=== PATIENT | male | born 1975 | race Caucasian/White ===

== ENCOUNTER 2022-04-24 13:09 | Inpatient (IN) | payer MEDICAID ==
[~2022-04-24] VITALS: Ht 177.8 cm; Wt 110.2 kg
[2022-04-24 15:12] LABS: BASOPHILS % 0.8 % (0.0-2.0); EOSINOPHILS % 2.3 % (0.0-5.0); HEMOGLOBIN. 9.6 g/dL (14.0-18.0); LYMPHOCYTES % 11.5 % (20.0-50.0); MEAN CORPUSCULAR HEMOGLOBIN 31.3 pg (28.0-32.0); MEAN PLATELET VOLUME 7.6 fl (7.4-10.4); MONOCYTES % 11.1 % (2.0-8.0); NEUTROPHILS % 74.3 % (40.0-76.0); PLATELET 221 x1000/uL (130-400); RED BLOOD CELL COUNT 3.06 mill/uL (4.7-6.1)
[2022-04-24 15:26] LABS: INR 1.1; PARTIAL THROMBOPLASTIN TIME 30.1 sec (23.4-31.0); PROTHROMBIN TIME 11.5 sec (9.6-11.0)
[2022-04-24 15:30] LABS: CHLORIDE 97 mEq/L (98-107)
[2022-04-24] MEDS ORDERED: LORAZEPAM 0.5MG TABLET PO PRN (18:00)
[2022-04-24] MEDS ORDERED: ACETAMINOPHEN 325MG TABLET PO PRN ×2 (18:00)
[2022-04-24] MEDS ORDERED: IPRATROPIUM/ALBUTEROL 0.5-3(2.5)MG/3ML NEB HHN PRN (18:00)
[2022-04-24] MEDS ORDERED: DOCUSATE SODIUM 100MG CAPSULE PO PRN (18:00)
[2022-04-24] MEDS ORDERED: ONDANSETRON HCL 4MG/2ML INJ IV PRN (18:00)
[2022-04-24] MEDS ORDERED: ALBUTEROL (0.083%) 2.5MG/3ML NEB HHN PRN (18:15)
[2022-04-24] MEDS ORDERED: IPRATROPIUM BROMIDE (0.02%) 0.5MG/2.5ML NEB HHN PRN (18:15)
[2022-04-24] MEDS: HYDROCODONE/ACETAMINOPHEN 5/325MG TABLET PO PRN (20:05)
[2022-04-24 23:45] VITALS: BP 130/73
[2022-04-25] VITALS (7 sets, daily range): BP systolic 120–152; BP diastolic 62–78
[2022-04-25] MEDS: HYDROCODONE/ACETAMINOPHEN 5/325MG TABLET PO PRN ×3 (02:28→21:49)
[2022-04-25 07:08] LABS: BASOPHILS % 0.8 % (0.0-2.0); EOSINOPHILS % 4.5 % (0.0-5.0); HEMATOCRIT. 26.1 % (42.0-52.0); HEMOGLOBIN. 8.6 g/dL (14.0-18.0); LYMPHOCYTES % 12.1 % (20.0-50.0); MEAN CORPUSCULAR HEMOGLOBIN 31.7 pg (28.0-32.0); MEAN CORPUSCULAR VOLUME 96.2 fL (80.0-94.0); MEAN PLATELET VOLUME 7.9 fl (7.4-10.4); MONOCYTES % 14.3 % (2.0-8.0); NEUTROPHILS % 68.3 % (40.0-76.0); PLATELET 194 x1000/uL (130-400); RED BLOOD CELL COUNT 2.71 mill/uL (4.7-6.1)
[2022-04-25] MEDS ORDERED: NALOXONE HCL 0.4MG/ML VIAL IV PRN (11:15)
[2022-04-25 15:18] LABS: HEPATITIS B SURFACE ANTIGEN NEGATIVE
[2022-04-25] MEDS ORDERED: CEFTRIAXONE 1 G PREMIX 50 ML IV SCH (17:30)
[2022-04-25] MEDS ORDERED: CEFEPIME 1,000 MG in DEXTROSE 5% WATER 50 ML IV SCH (18:30)
[2022-04-25] MEDS ORDERED: VANCOMYCIN 2,000 MG in DEXT 5% WATER 500 ML IV NR ×2 (18:30→21:00)
[2022-04-25] MEDS: CEFEPIME 1,000 MG in DEXTROSE 5% WATER 50 ML IV SCH (20:32)
[2022-04-26] VITALS (11 sets, daily range): BP systolic 115–186; BP diastolic 64–87
[2022-04-26] MEDS: MORPHINE SULFATE 2 MG/ML CPJ (NOT FOR IM USE) IV PRN ×5 (02:32→22:01)
[2022-04-26] MEDS: HYDROCODONE/ACETAMINOPHEN 5/325MG TABLET PO PRN (10:32)
[2022-04-26] MEDS ORDERED: DEXTROSE 50% WATER 50ML SYRINGE IV PRN (13:00)
[2022-04-26] MEDS: BLOOD SUGAR DIAGNOSTIC STRIP TEST SCH ×2 (16:30→20:59)
[2022-04-26] MEDS: INSULIN LISPRO 100 UNITS/ML SUBCUT SCH ×2 (16:30→20:59)
[2022-04-26] MEDS: CEFEPIME 1,000 MG in DEXTROSE 5% WATER 50 ML IV SCH (20:48)
[2022-04-27] VITALS (8 sets, daily range): BP systolic 140–169; BP diastolic 71–90
[2022-04-27] MEDS: HYDROCODONE/ACETAMINOPHEN 5/325MG TABLET PO PRN (00:29)
[2022-04-27 05:59] LABS: BASOPHILS % 0.8 % (0.0-2.0); HEMATOCRIT. 26.1 % (42.0-52.0); HEMOGLOBIN. 8.6 g/dL (14.0-18.0); LYMPHOCYTES % 13.6 % (20.0-50.0); MEAN CORPUSCULAR HEMOGLOBIN 31.2 pg (28.0-32.0); MEAN CORPUSCULAR VOLUME 94.8 fL (80.0-94.0); MEAN PLATELET VOLUME 7.6 fl (7.4-10.4); MONOCYTES % 13.5 % (2.0-8.0); NEUTROPHILS % 68.1 % (40.0-76.0); PLATELET 200 x1000/uL (130-400); RED BLOOD CELL COUNT 2.75 mill/uL (4.7-6.1); RED CELL DISTRIBUTION WIDTH 15.9 % (11.6-14.6)
[2022-04-27] MEDS: MORPHINE SULFATE 2 MG/ML CPJ (NOT FOR IM USE) IV PRN ×2 (06:49→20:26)
[2022-04-27] MEDS: INSULIN LISPRO 100 UNITS/ML SUBCUT SCH ×4 (07:01→20:17)
[2022-04-27] MEDS: BLOOD SUGAR DIAGNOSTIC STRIP TEST SCH ×4 (07:01→20:17)
[2022-04-27] MEDS ORDERED: LINE600T14 MT (14:30)
[2022-04-27] MEDS ORDERED: LEVO-65 MT (14:30)
[2022-04-27] MEDS: CEFEPIME 1,000 MG in DEXTROSE 5% WATER 50 ML IV SCH (20:25)
[2022-04-28] VITALS (17 sets, daily range): BP systolic 97–178; BP diastolic 47–86
[2022-04-28] MEDS: CLONIDINE 0.1MG TABLET PO PRN (05:04)
[2022-04-28] MEDS: BLOOD SUGAR DIAGNOSTIC STRIP TEST SCH ×4 (06:50→21:08)
[2022-04-28] MEDS: INSULIN LISPRO 100 UNITS/ML SUBCUT SCH ×4 (07:20→21:00)
[2022-04-28 08:05] LABS: BASOPHILS % 0.8 % (0.0-2.0); EOSINOPHILS % 4.9 % (0.0-5.0); HEMATOCRIT. 26.4 % (42.0-52.0); HEMOGLOBIN. 8.8 g/dL (14.0-18.0); LYMPHOCYTES % 14.6 % (20.0-50.0); MEAN CORPUSCULAR HEMOGLOBIN 31.7 pg (28.0-32.0); MEAN CORPUSCULAR VOLUME 95.1 fL (80.0-94.0); MEAN PLATELET VOLUME 7.4 fl (7.4-10.4); NEUTROPHILS % 67.7 % (40.0-76.0); PLATELET 208 x1000/uL (130-400); RED BLOOD CELL COUNT 2.78 mill/uL (4.7-6.1); RED CELL DISTRIBUTION WIDTH 15.9 % (11.6-14.6)
[2022-04-28] MEDS ORDERED: VANCOMYCIN 1GM PMX (XELLIA) 200 ML IV SCH (18:00)
[2022-04-28] MEDS ORDERED: VANCOMYCIN 1G PREMIX 200 ML IV NR (18:30)
[2022-04-28] MEDS: CEFEPIME 1,000 MG in DEXTROSE 5% WATER 50 ML IV SCH (21:09)
[2022-04-28] MEDS: MORPHINE SULFATE 2 MG/ML CPJ (NOT FOR IM USE) IV PRN (21:52)
[2022-04-29 04:14] VITALS: BP 167/73
[2022-04-29] MEDS: CLONIDINE 0.1MG TABLET PO PRN ×2 (05:57→13:02)
[2022-04-29] MEDS: BLOOD SUGAR DIAGNOSTIC STRIP TEST SCH (06:02)
[2022-04-29 08:00] VITALS: BP 169/89
[2022-04-29 12:00] VITALS: BP 178/79
[2022-04-29 16:00] VITALS: BP 155/64
[2022-04-29] MEDS: MORPHINE SULFATE 2 MG/ML CPJ (NOT FOR IM USE) IV PRN (18:18)
[2022-04-29 20:00] VITALS: BP 147/69
[2022-04-29] MEDS: CEFEPIME 1,000 MG in DEXTROSE 5% WATER 50 ML IV SCH (21:05)
[2022-04-30] VITALS: BP 155/79
[2022-04-30] MEDS: CLONIDINE 0.1MG TABLET PO PRN (03:49)
[2022-04-30 04:00] VITALS: BP 171/80
[2022-04-30 07:03] LABS: BASOPHILS % 1.1 % (0.0-2.0); EOSINOPHILS % 7.4 % (0.0-5.0); HEMATOCRIT. 26.2 % (42.0-52.0); HEMOGLOBIN. 8.7 g/dL (14.0-18.0); LYMPHOCYTES % 14.2 % (20.0-50.0); MEAN CORPUSCULAR HEMOGLOBIN 31.4 pg (28.0-32.0); MEAN PLATELET VOLUME 7.4 fl (7.4-10.4); MONOCYTES % 12.8 % (2.0-8.0); NEUTROPHILS % 64.5 % (40.0-76.0); PLATELET 210 x1000/uL (130-400); RED BLOOD CELL COUNT 2.76 mill/uL (4.7-6.1); RED CELL DISTRIBUTION WIDTH 16.2 % (11.6-14.6)
[2022-04-30 08:00] VITALS: BP 181/74
[2022-04-30 12:00] VITALS: BP 151/71
[2022-04-30] MEDS ORDERED: NALOXONE HCL 0.4MG/ML VIAL IV PRN (12:15)
[2022-04-30] MEDS: AMLODIPINE 5MG TABLET PO SCH (12:47)
[2022-04-30] MEDS: MORPHINE SULFATE 2 MG/ML CPJ (NOT FOR IM USE) IV PRN ×2 (14:28→19:58)
[2022-04-30 16:00] VITALS: BP 147/72
[2022-04-30 19:39] VITALS: BP 156/77
[2022-04-30] MEDS: CEFEPIME 1,000 MG in DEXTROSE 5% WATER 50 ML IV SCH (20:07)
[2022-05-01] VITALS (11 sets, daily range): BP systolic 123–158; BP diastolic 69–79
[2022-05-01 06:28] LABS: EOSINOPHILS % 6.6 % (0.0-5.0); HEMATOCRIT. 28.5 % (42.0-52.0); HEMOGLOBIN. 9.5 g/dL (14.0-18.0); LYMPHOCYTES % 15.5 % (20.0-50.0); MEAN CORPUSCULAR HEMOGLOBIN 31.8 pg (28.0-32.0); MEAN CORPUSCULAR VOLUME 95.1 fL (80.0-94.0); MEAN PLATELET VOLUME 7.5 fl (7.4-10.4); MONOCYTES % 11.2 % (2.0-8.0); NEUTROPHILS % 65.7 % (40.0-76.0); PLATELET 233 x1000/uL (130-400); RED CELL DISTRIBUTION WIDTH 15.7 % (11.6-14.6)
[2022-05-01] MEDS: MORPHINE SULFATE 2 MG/ML CPJ (NOT FOR IM USE) IV PRN ×2 (07:08→18:41)
[2022-05-01] MEDS: METOCLOPRAMIDE HCL 10MG/2ML VIAL IV PRN (07:37)
[2022-05-01] MEDS: AMLODIPINE 5MG TABLET PO SCH (07:37)
[2022-05-01] MEDS: OMEPRAZOLE 20MG CAPSULE EXTENDED RELEASE PO SCH ×2 (08:24→16:49)
[2022-05-01] MEDS: CEFEPIME 1,000 MG in DEXTROSE 5% WATER 50 ML IV SCH (20:48)
[2022-05-02] VITALS (7 sets, daily range): BP systolic 138–182; BP diastolic 69–87
[2022-05-02] MEDS: OMEPRAZOLE 20MG CAPSULE EXTENDED RELEASE PO SCH ×2 (08:03→17:26)
[2022-05-02] MEDS: AMLODIPINE 5MG TABLET PO SCH (08:03)
[2022-05-02] MEDS: MORPHINE SULFATE 2 MG/ML CPJ (NOT FOR IM USE) IV PRN (16:05)
[2022-05-02] MEDS: CEFEPIME 1,000 MG in DEXTROSE 5% WATER 50 ML IV SCH (20:33)
[2022-05-03] VITALS (13 sets, daily range): BP systolic 103–168; BP diastolic 64–97
[2022-05-03] MEDS: MORPHINE SULFATE 2 MG/ML CPJ (NOT FOR IM USE) IV PRN ×2 (00:09→21:41)
[2022-05-03 06:16] LABS: EOSINOPHILS % 5.5 % (0.0-5.0); HEMOGLOBIN. 8.7 g/dL (14.0-18.0); MEAN CORPUSCULAR HEMOGLOBIN 31.6 pg (28.0-32.0); MEAN PLATELET VOLUME 7.8 fl (7.4-10.4); NEUTROPHILS % 63.5 % (40.0-76.0); PLATELET 216 x1000/uL (130-400); RED BLOOD CELL COUNT 2.74 mill/uL (4.7-6.1); RED CELL DISTRIBUTION WIDTH 15.8 % (11.6-14.6)
[2022-05-03] MEDS: FAMOTIDINE 20MG TABLET PO SCH (06:42)
[2022-05-03] MEDS: AMLODIPINE 5MG TABLET PO SCH (09:23)
[2022-05-03] MEDS ORDERED: VANCOMYCIN 500MG PREMIX 100 ML IV NR (18:00)
[2022-05-03] MEDS: EPOETIN ALFA-EPBX 4,000 UNIT/ML VIAL SUBCUT SCH (21:40)
[2022-05-03] MEDS: CEFEPIME 1,000 MG in DEXTROSE 5% WATER 50 ML IV SCH (23:03)
[2022-05-04] VITALS: BP 143/70
[2022-05-04] MEDS: MORPHINE SULFATE 2 MG/ML CPJ (NOT FOR IM USE) IV PRN ×2 (02:17→22:41)
[2022-05-04 04:00] VITALS: BP 157/75
[2022-05-04] MEDS: FAMOTIDINE 20MG TABLET PO SCH (07:06)
[2022-05-04 08:00] VITALS: BP 164/85
[2022-05-04] MEDS: AMLODIPINE 5MG TABLET PO SCH (08:31)
[2022-05-04 12:00] VITALS: BP 160/79
[2022-05-04 16:00] VITALS: BP 178/79
[2022-05-04] MEDS: CLONIDINE 0.1MG TABLET PO PRN ×2 (18:35→22:00)
[2022-05-04 20:00] VITALS: BP 167/84
[2022-05-04] MEDS: CEFEPIME 1,000 MG in DEXTROSE 5% WATER 50 ML IV SCH (22:00)
[2022-05-05] VITALS (13 sets, daily range): BP systolic 110–171; BP diastolic 61–83
[2022-05-05] MEDS: FAMOTIDINE 20MG TABLET PO SCH (05:29)
[2022-05-05] MEDS: MORPHINE SULFATE 2 MG/ML CPJ (NOT FOR IM USE) IV PRN ×2 (05:29→21:37)
[2022-05-05] MEDS: CLONIDINE 0.1MG TABLET PO PRN (05:29)
[2022-05-05] MEDS: AMLODIPINE 5MG TABLET PO SCH (08:36)
[2022-05-05] MEDS: METOCLOPRAMIDE HCL 10MG/2ML VIAL IV PRN (08:55)
[2022-05-05 09:10] LABS: BASOPHILS % 1.1 % (0.0-2.0); EOSINOPHILS % 6.2 % (0.0-5.0); HEMATOCRIT. 27.2 % (42.0-52.0); MEAN CORPUSCULAR HEMOGLOBIN 31.1 pg (28.0-32.0); MEAN CORPUSCULAR VOLUME 93.7 fL (80.0-94.0); MONOCYTES % 12.1 % (2.0-8.0); NEUTROPHILS % 62.6 % (40.0-76.0); PLATELET 232 x1000/uL (130-400); RED CELL DISTRIBUTION WIDTH 15.6 % (11.6-14.6)
[2022-05-05] MEDS ORDERED: VANCOMYCIN 500MG PREMIX 100 ML IV SCH (14:00)
[2022-05-05] MEDS: CEFEPIME 1,000 MG in DEXTROSE 5% WATER 50 ML IV SCH (20:23)
[2022-05-05] MEDS: EPOETIN ALFA-EPBX 4,000 UNIT/ML VIAL SUBCUT SCH (20:24)
[2022-05-06] VITALS: BP 166/77
[2022-05-06] MEDS: CLONIDINE 0.1MG TABLET PO PRN ×3 (00:24→16:33)
[2022-05-06 04:00] VITALS: BP 175/74
[2022-05-06] MEDS: FAMOTIDINE 20MG TABLET PO SCH (06:25)
[2022-05-06 08:00] VITALS: BP 173/81
[2022-05-06] MEDS: AMLODIPINE 5MG TABLET PO SCH ×2 (08:44→20:47)
[2022-05-06 12:00] VITALS: BP 145/66
[2022-05-06 16:00] VITALS: BP 167/77
[2022-05-06 20:00] VITALS: BP 158/74
[2022-05-06] MEDS: CEFEPIME 1,000 MG in DEXTROSE 5% WATER 50 ML IV SCH (20:07)
[2022-05-06] MEDS: MORPHINE SULFATE 2 MG/ML CPJ (NOT FOR IM USE) IV PRN (20:08)
[2022-05-06] MEDS: HYDRALAZINE HCL 50MG TABLET PO SCH (20:46)
[2022-05-06] MEDS ORDERED: MORPHINE SULFATE 2 MG/ML CPJ (NOT FOR IM USE) IV PRN (21:15)
[2022-05-07] VITALS: BP 175/77
[2022-05-07] MEDS: CLONIDINE 0.1MG TABLET PO PRN ×2 (01:20→14:33)
[2022-05-07 04:00] VITALS: BP 149/77
[2022-05-07] MEDS: FAMOTIDINE 20MG TABLET PO SCH (06:04)
[2022-05-07 07:35] LABS: EOSINOPHILS % 7.4 % (0.0-5.0); HEMATOCRIT. 28.3 % (42.0-52.0); HEMOGLOBIN. 9.5 g/dL (14.0-18.0); LYMPHOCYTES % 18.3 % (20.0-50.0); MEAN CORPUSCULAR HEMOGLOBIN 31.4 pg (28.0-32.0); MEAN CORPUSCULAR VOLUME 93.4 fL (80.0-94.0); MEAN PLATELET VOLUME 7.9 fl (7.4-10.4); MONOCYTES % 12.9 % (2.0-8.0); NEUTROPHILS % 60.4 % (40.0-76.0); PLATELET 227 x1000/uL (130-400); RED BLOOD CELL COUNT 3.03 mill/uL (4.7-6.1); RED CELL DISTRIBUTION WIDTH 15.6 % (11.6-14.6)
[2022-05-07 08:00] VITALS: BP 164/77
[2022-05-07 12:00] VITALS: BP 161/71
[2022-05-07] MEDS: HYDRALAZINE HCL 50MG TABLET PO SCH ×2 (12:24→17:00)
[2022-05-07] MEDS: AMLODIPINE 5MG TABLET PO SCH ×2 (12:25→21:47)
[2022-05-07 16:00] VITALS: BP 152/67
[2022-05-07 20:00] VITALS: BP 151/79
[2022-05-07] MEDS: CEFEPIME 1,000 MG in DEXTROSE 5% WATER 50 ML IV SCH (20:00)
[2022-05-07] MEDS: HYDROCODONE/ACETAMINOPHEN 5/325MG TABLET PO PRN (22:07)
[2022-05-08] VITALS (13 sets, daily range): BP systolic 98–171; BP diastolic 54–78
[2022-05-08] MEDS: HYDRALAZINE HCL 50MG TABLET PO SCH ×3 (01:00→17:37)
[2022-05-08 06:20] LABS: BASOPHILS % 1.1 % (0.0-2.0); EOSINOPHILS % 6.4 % (0.0-5.0); HEMATOCRIT. 27.5 % (42.0-52.0); HEMOGLOBIN. 9.2 g/dL (14.0-18.0); LYMPHOCYTES % 16.3 % (20.0-50.0); MEAN CORPUSCULAR HEMOGLOBIN 31.6 pg (28.0-32.0); MEAN CORPUSCULAR VOLUME 94.7 fL (80.0-94.0); MEAN PLATELET VOLUME 7.8 fl (7.4-10.4); MONOCYTES % 13.1 % (2.0-8.0); NEUTROPHILS % 63.1 % (40.0-76.0); PLATELET 218 x1000/uL (130-400); RED CELL DISTRIBUTION WIDTH 15.5 % (11.6-14.6)
[2022-05-08] MEDS: FAMOTIDINE 20MG TABLET PO SCH (06:35)
[2022-05-08] MEDS: AMLODIPINE 5MG TABLET PO SCH ×2 (08:45→20:42)
[2022-05-08] MEDS: CEFEPIME 1,000 MG in DEXTROSE 5% WATER 50 ML IV SCH (20:35)
[2022-05-08] MEDS: EPOETIN ALFA-EPBX 4,000 UNIT/ML VIAL SUBCUT SCH (20:43)
[2022-05-08] MEDS: HYDROCODONE/ACETAMINOPHEN 5/325MG TABLET PO PRN (22:57)
[2022-05-08] MEDS ORDERED: NALOXONE HCL 0.4MG/ML VIAL IV PRN (23:00)
[2022-05-09] VITALS: BP 152/72
[2022-05-09] MEDS: HYDRALAZINE HCL 50MG TABLET PO SCH ×3 (00:43→18:49)
[2022-05-09] MEDS: HYDROCODONE/ACETAMINOPHEN 5/325MG TABLET PO PRN ×3 (02:57→18:50)
[2022-05-09] MEDS: FAMOTIDINE 20MG TABLET PO SCH (06:45)
[2022-05-09] MEDS: AMLODIPINE 5MG TABLET PO SCH ×2 (09:05→20:24)
[2022-05-09] MEDS ORDERED: VANCOMYCIN 500MG PREMIX 100 ML IV NR (12:00)
[2022-05-09 20:00] VITALS: BP 135/52
[2022-05-09] MEDS: CEFEPIME 1,000 MG in DEXTROSE 5% WATER 50 ML IV SCH (20:23)
[2022-05-10] VITALS (14 sets, daily range): BP systolic 90–172; BP diastolic 50–96
[2022-05-10] MEDS: HYDRALAZINE HCL 50MG TABLET PO SCH ×3 (00:29→19:19)
[2022-05-10] MEDS: FAMOTIDINE 20MG TABLET PO SCH (06:22)
[2022-05-10 06:30] LABS: EOSINOPHILS % 4.2 % (0.0-5.0); HEMATOCRIT. 28.9 % (42.0-52.0); HEMOGLOBIN. 9.7 g/dL (14.0-18.0); LYMPHOCYTES % 12.6 % (20.0-50.0); MEAN CORPUSCULAR HEMOGLOBIN 31.2 pg (28.0-32.0); MEAN CORPUSCULAR VOLUME 93.1 fL (80.0-94.0); MONOCYTES % 14.2 % (2.0-8.0); PLATELET 222 x1000/uL (130-400); RED BLOOD CELL COUNT 3.11 mill/uL (4.7-6.1); RED CELL DISTRIBUTION WIDTH 16.2 % (11.6-14.6)
[2022-05-10] MEDS: AMLODIPINE 5MG TABLET PO SCH ×2 (09:31→23:00)
[2022-05-10] MEDS ORDERED: VANCOMYCIN 500MG PREMIX 100 ML IV SCH (21:00)
[2022-05-10] MEDS: MORPHINE SULFATE 2 MG/ML CPJ (NOT FOR IM USE) IV PRN (22:52)
[2022-05-11] MEDS: CEFEPIME 1,000 MG in DEXTROSE 5% WATER 50 ML IV SCH ×2 (00:15→20:30)
[2022-05-11] MEDS: HYDRALAZINE HCL 50MG TABLET PO SCH ×3 (01:00→17:32)
[2022-05-11 04:00] VITALS: BP 143/63
[2022-05-11] MEDS: MORPHINE SULFATE 2 MG/ML CPJ (NOT FOR IM USE) IV PRN ×2 (05:16→22:50)
[2022-05-11 08:00] VITALS: BP 153/69
[2022-05-11] MEDS: FAMOTIDINE 20MG TABLET PO SCH (09:34)
[2022-05-11] MEDS: AMLODIPINE 5MG TABLET PO SCH ×2 (09:34→21:00)
[2022-05-11 12:00] VITALS: BP 147/72
[2022-05-11 16:00] VITALS: BP 138/74
[2022-05-12] VITALS (12 sets, daily range): BP systolic 108–159; BP diastolic 57–78
[2022-05-12] MEDS: HYDRALAZINE HCL 50MG TABLET PO SCH ×3 (01:34→17:51)
[2022-05-12] MEDS: HYDROCODONE/ACETAMINOPHEN 5/325MG TABLET PO PRN (03:26)
[2022-05-12] MEDS: FAMOTIDINE 20MG TABLET PO SCH (07:30)
[2022-05-12] MEDS: AMLODIPINE 5MG TABLET PO SCH ×2 (09:33→21:00)
[2022-05-12] MEDS: MORPHINE SULFATE 2 MG/ML CPJ (NOT FOR IM USE) IV PRN ×2 (11:14→17:51)
[2022-05-13] MEDS: MORPHINE SULFATE 2 MG/ML CPJ (NOT FOR IM USE) IV PRN (01:24)
[2022-05-13] MEDS: HYDRALAZINE HCL 50MG TABLET PO SCH ×2 (01:25→09:55)
[2022-05-13] MEDS: FAMOTIDINE 20MG TABLET PO SCH (09:54)
[2022-05-13] MEDS: AMLODIPINE 5MG TABLET PO SCH (09:56)
[2022-05-13 11:07] VITALS: BP 135/61
[2022-05-13 12:37] VITALS: BP 140/71
== END 2022-05-13 12:35 | DRG 349 ==
LOC: ER 13:09 → 3WST 15:55 → EDBEDREQ 15:57 → EDBEDREQTM 15:57 → 5WST 05-04 15:28
PROVIDERS: ADMIT Family Medicine Adult Medicine; ATTEND Family Medicine Adult Medicine
PROC: 5A1D70Z Performance of Urinary Filtration, Intermittent, Less than 6 Hours Per Day (ICD-10-PCS; principal; 2022-04-26)
PROC: 5A1D70Z Performance of Urinary Filtration, Intermittent, Less than 6 Hours Per Day (ICD-10-PCS; 2022-04-28)
PROC: 5A1D70Z Performance of Urinary Filtration, Intermittent, Less than 6 Hours Per Day (ICD-10-PCS; 2022-05-01)
PROC: 5A1D70Z Performance of Urinary Filtration, Intermittent, Less than 6 Hours Per Day (ICD-10-PCS; 2022-05-03)
PROC: 5A1D70Z Performance of Urinary Filtration, Intermittent, Less than 6 Hours Per Day (ICD-10-PCS; 2022-05-05)
PROC: 5A1D70Z Performance of Urinary Filtration, Intermittent, Less than 6 Hours Per Day (ICD-10-PCS; 2022-05-08)
PROC: 5A1D70Z Performance of Urinary Filtration, Intermittent, Less than 6 Hours Per Day (ICD-10-PCS; 2022-05-10)
DX: T87.54 Necrosis of amputation stump, left lower extremity (principal); G92.8 Other toxic encephalopathy; I13.2 Hypertensive heart and chronic kidney disease with heart failure and with stage 5 chronic kidney disease, or end stage renal disease; N18.6 End stage renal disease; D63.1 Anemia in chronic kidney disease; E11.22 Type 2 diabetes mellitus with diabetic chronic kidney disease; E11.51 Type 2 diabetes mellitus with diabetic peripheral angiopathy without gangrene; K74.60 Unspecified cirrhosis of liver; I50.9 Heart failure, unspecified; H54.7 Unspecified visual loss; Z89.512 Acquired absence of left leg below knee; Z99.2 Dependence on renal dialysis; Z79.4 Long term (current) use of insulin; Y83.5 Amputation of limb(s) as the cause of abnormal reaction of the patient, or of later complication, without mention of misadventure at the time of the procedure; Y83.9 Surgical procedure, unspecified as the cause of abnormal reaction of the patient, or of later complication, without mention of misadventure at the time of the procedure
CPT/HCPCS: 36415; 70551; 71045; 73700; 74176; 76881; 80048; 80053; 80202; 82140; 82962; 83036; 83605; 83880; 84145; 84484; 85025; 86705; 86709; 86803; 86850; 86900; 87340; 90935; 93005; 93923; 97110; 97162; 97166; 97530; 99285; A6261; J0692; J0885; J2270; J2405; J2765; J3370; J7060

== ENCOUNTER → 2022-08-22 | Day surgery (SDC) | payer MEDICAID ==
[~2022-08-22] MED LIST: AMLO10TA80 PO; ASCO500T20 PO; COR3 PO; ENOX40DI8 SUBCUT; FAMO20TA8 PO; FERR-63 PO; HYDR-4001 PO; HYDR100T26 PO; IPRA3AMP9 HHN; LIDOCAINE HCL 1% 10 MG/ML 10ML VIAL ONE; ONDA4TAB11 PO; SEVE800T8 PO; SODIUM BICARBONATE 4% (2.4MEQ) 5ML VIAL IV ONE; TOPUD PO
== END | disposition home or self-care (01) ==
LOC: RAD 09:39
PROVIDERS: ATTEND Internal Medicine
DX: R18.8 Other ascites (principal); R14.0 Abdominal distension (gaseous); Z79.899 Other long term (current) drug therapy; Z98.890 Other specified postprocedural states; Z82.49 Family history of ischemic heart disease and other diseases of the circulatory system; Z88.8 Allergy status to other drugs, medicaments and biological substances
CPT/HCPCS: 49083; J3490

== ENCOUNTER → 2022-08-29 | Day surgery (SDC) | payer MEDICAID | END | disposition home or self-care (01) | LOC: RAD 10:10 | PROVIDERS: ATTEND Internal Medicine | DX: R18.8 Other ascites (principal); Z79.899 Other long term (current) drug therapy; Z88.8 Allergy status to other drugs, medicaments and biological substances; Z82.49 Family history of ischemic heart disease and other diseases of the circulatory system | CPT/HCPCS: 49083; J3490 ==

== ENCOUNTER → 2022-09-05 | Day surgery (SDC) | payer MEDICAID ==
[~2022-09-05] MED LIST changes: -LIDOCAINE HCL 1% 10 MG/ML 10ML VIAL ONE; +METR-167 MT; -SODIUM BICARBONATE 4% (2.4MEQ) 5ML VIAL IV ONE; +SULF1TAB48 MT
== END | disposition home or self-care (01) ==
LOC: RAD 10:18
PROVIDERS: ATTEND Internal Medicine
DX: R18.8 Other ascites (principal); Z79.899 Other long term (current) drug therapy; Z88.8 Allergy status to other drugs, medicaments and biological substances; Z82.49 Family history of ischemic heart disease and other diseases of the circulatory system
CPT/HCPCS: 49083

== ENCOUNTER → 2022-09-12 | Day surgery (SDC) | payer MEDICAID ==
[~2022-09-12] MED LIST changes: +LIDOCAINE HCL 1% 10 MG/ML 10ML VIAL ONE; -METR-167 MT; +SODIUM BICARBONATE 4% (2.4MEQ) 5ML VIAL IV ONE; -SULF1TAB48 MT
== END | disposition home or self-care (01) ==
LOC: RAD 09:51
PROVIDERS: ATTEND Internal Medicine
DX: R18.8 Other ascites (principal); Z79.899 Other long term (current) drug therapy; Z88.8 Allergy status to other drugs, medicaments and biological substances
CPT/HCPCS: 76705; J3490

== ENCOUNTER 2022-09-19 09:55 | Emergency (ER) | payer MEDICAID ==
[~2022-09-19] VITALS: Ht 185.4 cm; Wt 120.0 kg
[~2022-09-19 09:55] MED LIST changes: -LIDOCAINE HCL 1% 10 MG/ML 10ML VIAL ONE; -SODIUM BICARBONATE 4% (2.4MEQ) 5ML VIAL IV ONE
[2022-09-19 10:07] VITALS: BP 168/90; PULSE 84; RESP 16; TEMP 98.7; O2SAT 96
[2022-09-21] MEDS ORDERED: SULF1TAB48 MT (08:12)
[2022-09-21] MEDS ORDERED: METR-167 MT (08:12)
== END 2022-09-19 10:24 | disposition left against medical advice (07) ==
LOC: ER 09:55
DX: Z53.21 Procedure and treatment not carried out due to patient leaving prior to being seen by health care provider (principal)
CPT/HCPCS: 99281

== ENCOUNTER 2022-10-10 10:44 | Emergency (ER) | payer MEDICAID ==
[~2022-10-10] VITALS: Ht 175.3 cm; Wt 90.0 kg
[~2022-10-10 10:44] MED LIST changes: +METR-167 MT; +SULF1TAB48 MT
[2022-10-10 11:23] VITALS: O2SAT 98
[2022-10-10 12:28] LABS: BASOPHILS % 1.2 % (0.0-2.0); EOSINOPHILS % 2.5 % (0.0-5.0); HEMATOCRIT. 29.1 % (42.0-52.0); HEMOGLOBIN. 9.5 g/dL (14.0-18.0); LYMPHOCYTES % 12.7 % (20.0-50.0); MEAN CORPUSCULAR HEMOGLOBIN 29.4 pg (28.0-32.0); MEAN CORPUSCULAR VOLUME 90.1 fL (80.0-94.0); MEAN PLATELET VOLUME 7.1 fl (7.4-10.4); MONOCYTES % 11.6 % (2.0-8.0); PLATELET 395 x1000/uL (130-400); RED BLOOD CELL COUNT 3.23 mill/uL (4.7-6.1); RED CELL DISTRIBUTION WIDTH 19.4 % (11.6-14.6)
[2022-10-10 12:37] LABS: CHLORIDE 101 mEq/L (98-107)
[2022-10-10 12:40] LABS: INR 1.1; PROTHROMBIN TIME 11.9 sec (9.6-11.0)
[2022-10-10] MEDS ORDERED: SODIUM BICARBONATE 4% (2.4MEQ) 5ML VIAL IV ONE (13:41)
[2022-10-10] MEDS ORDERED: LIDOCAINE HCL 1% 10 MG/ML 10ML VIAL ONE (13:41)
[2022-10-10 15:51] VITALS: BP 139/76; PULSE 87; RESP 16; TEMP 98
== END 2022-10-10 15:52 | disposition home or self-care (01) ==
LOC: ER 11:14 → CANBEDREQ 15:10 → ER 15:52
DX: R18.8 Other ascites (principal); Z20.822 Contact with and (suspected) exposure to COVID-19
CPT/HCPCS: 80053; 85025; 85610; 36415; 49083; 99285; 87426; J3490 ×2; Z7610 ×4; C9803

== ENCOUNTER 2023-11-23 10:24 | Inpatient (IN) | payer MEDICAID ==
[2023-11-23] VITALS (23 sets, daily range): BP systolic 77–156; BP diastolic 52–68; PULSE 70–78; RESP 0–28; TEMP 37.00296–37.252; O2SAT 86–97
[~2023-11-23] VITALS: Ht 170.2 cm; Wt 95.3 kg
[~2023-11-23 10:24] MED LIST changes: -ASCO500T20 PO; +CALC3.8S ONENSTRL; +CLON0.1T PO; +DICL100G58 TP; -ENOX40DI8 SUBCUT; -FAMO20TA8 PO; +FOLI0.8T53 MT; +HYDR-3735 PO; -HYDR100T26 PO; +HYDR50TA40 PO; -IPRA3AMP9 HHN; +LIDO700A30 TOP; -METR-167 MT; +MYL30 PO; -ONDA4TAB11 PO; +REN800 PO; -SEVE800T8 PO; -SULF1TAB48 MT; -TOPUD PO; +ZINC220C6 PO
[2023-11-23] MEDS: NOREPINEPHRINE 8MG/250ML PMX 250 ML IV ONE (10:59)
[2023-11-23] MEDS ORDERED: VASOPRESSIN 20 UNIT in SODIUM CHLORIDE 0.9% 99 ML ONE (11:00)
[2023-11-23 11:24] LABS: HEMATOCRIT. 38.2 % (42.0-52.0); HEMOGLOBIN. 12.7 g/dL (14.0-18.0); MEAN CORPUSCULAR HGB CONC 33.3 g/dL (31.0-37.0); MEAN CORPUSCULAR VOLUME 102.2 fL (80.0-94.0); MEAN PLATELET VOLUME 9.2 fl (7.4-10.4); PLATELET 104 x1000/uL (130-400); RED BLOOD CELL COUNT 3.74 mill/uL (4.7-6.1); RED CELL DISTRIBUTION WIDTH 16.9 % (11.6-14.6); WHITE BLOOD COUNT 10.7 x1000/uL (4.5-11.0)
[2023-11-23 11:28] LABS: DIFFERENTIAL COMMENT 1
[2023-11-23] MEDS: SODIUM CHLORIDE 0.9% 1000ML BAG (SEPSIS BOLUS) IV ONE (11:28)
[2023-11-23 11:30] LABS: CHLORIDE 98 mEq/L (98-107); POTASSIUM 4.1 mEq/L (3.5-5.1); SODIUM 131 mEq/L (136-145)
[2023-11-23 11:31] LABS: CARBON DIOXIDE 27 mEq/L (21-32)
[2023-11-23 11:32] LABS: CALCIUM 7.9 mg/dL (8.7-10.4)
[2023-11-23 11:36] LABS: CREATININE 4.9 mg/dL (0.6-1.3)
[2023-11-23 11:37] LABS: GLUCOSE 68 mg/dL (70-105); TROPONIN I HIGH SENSITIVITY 29 ng/L (3.0-53); UREA NITROGEN BLOOD 28 mg/dL (9-23)
[2023-11-23 11:38] LABS: ALANINE AMINOTRANSFERASE 23 IU/L (10-49); ASPARTATE AMINOTRANSFERASE 26 IU/L (<34); LACTIC ACID 3.4 mmol/L (0.4-2.0)
[2023-11-23 11:39] LABS: ALBUMIN 2.7 g/dL (3.2-4.8); BILIRUBIN DIRECT 0.8 mg/dL (<=3.0); BILIRUBIN TOTAL 1.2 mg/dL (0.1-1.0); PROTEIN TOTAL 5.5 g/dL (6.0-8.3)
[2023-11-23 11:43] LABS: D-DIMER 6.07 mg/L FEU (<0.50); ETHANOL BLOOD < 10 mg/dL (<10); INR 1.2; PROTHROMBIN TIME 13.1 sec (9.6-11.0)
[2023-11-23] MEDS: PIPERACILLIN/TAZO 3.375G/50ML 50 ML IV ONE (11:45)
[2023-11-23 11:47] LABS: ANISOCYTOSIS 1+; PLATELET ESTIMATE DECREASED
[2023-11-23] MEDS: VANCOMYCIN 1G PREMIX 200 ML IV ONE (11:50)
[2023-11-23 12:58] LABS: BG BASE EXCESS 0.2 mmol/L (-2.0-2.0); BG DEOXYHEMOGLOBIN 4.6 % (0.0-5.0); BG FRACTION INSPIRED OXYGEN 36; BG HCO3 ACT 23.9 mmol/L (22.0-26.0); BG METHEMOGLOBIN 0.3 % (0.0-1.5); BG OXYGEN SATURATION 95.3 % (92.0-98.5); BG OXYHEMOGLOBIN 94.1 % (94.0-97.0); BG PCO2 36.6 mmHg (35.0-45.0); BG PH 7.433 (7.350-7.450); BG PO2 75.3 mmHg (75.0-100.0); BG SAMPLE SITE RIGHT BRACHIAL; BG VENT MODE NASAL CANNULA
[2023-11-23 13:33] LABS: TROPONIN I HIGH SENSITIVITY 28 ng/L (3.0-53)
[2023-11-23 14:00] LABS: PHOSPHORUS 3.4 mg/dL (2.5-4.9)
[2023-11-23] MEDS: ACETAMINOPHEN 325MG TABLET PO NR (14:04)
[2023-11-23] MEDS ORDERED: GUAIFENESIN 200MG/10ML SUGAR FREE UDC PO PRN (14:45)
[2023-11-23] MEDS ORDERED: DEXTROSE 50% WATER 50ML SYRINGE IV PRN (14:45)
[2023-11-23] MEDS ORDERED: IPRATROPIUM/ALBUTEROL 0.5-3(2.5)MG/3ML NEB HHN PRN (14:45)
[2023-11-23] MEDS ORDERED: DOCUSATE SODIUM 100MG CAPSULE PO PRN (14:45)
[2023-11-23] MEDS ORDERED: CLONIDINE 0.1MG TABLET PO PRN (14:45)
[2023-11-23 15:02] LABS: IRON 26 ug/dL (65-175)
[2023-11-23 15:05] LABS: TOTAL IRON BINDING CAPACITY 353 ug/dl (250-425)
[2023-11-23 15:08] LABS: FERRITIN 1546 ng/mL (22-322); FOLIC ACID (FOLATE) SERUM 7.19 ng/mL (>5.38); VITAMIN B12 SERUM 1142 pg/mL (211-911)
[2023-11-23] MEDS: MAGNESIUM 2 G PREMIX 50 ML IV SCH (15:12)
[2023-11-23] MEDS: MIDODRINE HCL 5MG TABLET PO SCH (16:39)
[2023-11-23] MEDS: VANCOMYCIN 500MG/100ML IV NR (19:55)
[2023-11-23] MEDS: PIPERACILLIN/TAZO 3.375G/50ML 50 ML IV SCH (22:16)
[2023-11-23] MEDS: ACETAMINOPHEN 325MG TABLET PO PRN (22:35)
[2023-11-24] VITALS (75 sets, daily range): BP systolic 52–150; BP diastolic 19–80; PULSE 60–95; RESP 10–30; TEMP 36.55848–37.2252; O2SAT 90–99
[2023-11-24] MEDS: NOREPINEPHRINE 8MG/250ML PMX 250 ML IV PRN ×2 (00:06→18:24)
[2023-11-24 05:35] LABS: BASOPHILS % 0.5 % (0.0-2.0); CALCIUM 8.1 mg/dL (8.7-10.4); DIFFERENTIAL COMMENT 0; EOSINOPHILS % 2.3 % (0.0-5.0); HEMATOCRIT. 37.6 % (42.0-52.0); HEMOGLOBIN. 12.6 g/dL (14.0-18.0); LYMPHOCYTES % 10.5 % (20.0-50.0); MEAN CORPUSCULAR HEMOGLOBIN 34.3 pg (28.0-32.0); MEAN CORPUSCULAR HGB CONC 33.4 g/dL (31.0-37.0); MEAN CORPUSCULAR VOLUME 102.6 fL (80.0-94.0); MEAN PLATELET VOLUME 10.4 fl (7.4-10.4); MONOCYTES % 12.8 % (2.0-8.0); NEUTROPHILS % 73.9 % (40.0-76.0); PLATELET 99 x1000/uL (130-400); POTASSIUM 4.6 mEq/L (3.5-5.1); RED BLOOD CELL COUNT 3.66 mill/uL (4.7-6.1); RED CELL DISTRIBUTION WIDTH 16.7 % (11.6-14.6); WHITE BLOOD COUNT 6.4 x1000/uL (4.5-11.0)
[2023-11-24 05:43] LABS: CREATININE 5.8 mg/dL (0.6-1.3)
[2023-11-24] MEDS ORDERED: LIDOCAINE HCL 1% 10 MG/ML 10ML VIAL ONE (08:13)
[2023-11-24] MEDS: ENOXAPARIN 30MG/0.3ML SYR SUBCUT SCH (09:00)
[2023-11-24] MEDS: FAMOTIDINE 20MG/2ML VIAL IV SCH (10:29)
[2023-11-24] MEDS: MIDODRINE HCL 5MG TABLET PO SCH ×2 (13:40→22:20)
[2023-11-25] VITALS (77 sets, daily range): BP systolic 52–184; BP diastolic 28–162; PULSE 65–83; RESP 14–45; TEMP 36.55848–37.11408; O2SAT 85–99
[2023-11-25 05:44] LABS: CHLORIDE 92 mEq/L (98-107); SODIUM 126 mEq/L (136-145)
[2023-11-25 05:46] LABS: CARBON DIOXIDE 24 mEq/L (21-32)
[2023-11-25 05:47] LABS: BASOPHILS % 0.6 % (0.0-2.0); CALCIUM 8.3 mg/dL (8.7-10.4); DIFFERENTIAL COMMENT 0; EOSINOPHILS % 0.8 % (0.0-5.0); HEMATOCRIT 43.1 % (42.0-52.0); HEMATOCRIT. 43.1 % (42.0-52.0); HEMOGLOBIN 14.8 g/dL (14.0-18.0); HEMOGLOBIN. 14.8 g/dL (14.0-18.0); MEAN CORPUSCULAR HEMOGLOBIN 34.8 pg (28.0-32.0); MEAN CORPUSCULAR HGB CONC 34.2 g/dL (31.0-37.0); MEAN CORPUSCULAR VOLUME 101.8 fL (80.0-94.0); MONOCYTES % 12.3 % (2.0-8.0); NEUTROPHILS % 73.3 % (40.0-76.0); PLATELET 96 x1000/uL (130-400); RED BLOOD CELL COUNT 4.24 mill/uL (4.7-6.1); RED CELL DISTRIBUTION WIDTH 17.3 % (11.6-14.6); WHITE BLOOD COUNT 7.9 x1000/uL (4.5-11.0)
[2023-11-25 05:52] LABS: GLUCOSE 135 mg/dL (70-105); UREA NITROGEN BLOOD 46 mg/dL (9-23)
[2023-11-25 05:54] LABS: ALANINE AMINOTRANSFERASE 27 IU/L (10-49); ALBUMIN 2.9 g/dL (3.2-4.8); ASPARTATE AMINOTRANSFERASE 37 IU/L (<34); BILIRUBIN TOTAL 2.4 mg/dL (0.1-1.0); PHOSPHORUS 2.9 mg/dL (2.5-4.9); PROTEIN TOTAL 6.5 g/dL (6.0-8.3)
[2023-11-25 06:07] LABS: CREATININE 6.8 mg/dL (0.6-1.3)
[2023-11-25 06:17] LABS: HEPATITIS B SURFACE ANTIGEN NEGATIVE (Negative)
[2023-11-25] MEDS: VANCOMYCIN 750MG/150ML (BAXTER) IV NR (09:59)
[2023-11-25] MEDS: MIDODRINE HCL 5MG TABLET PO SCH (14:29)
[2023-11-25] MEDS: FERROUS SULFATE 325MG TABLET PO SCH (18:28)
[2023-11-26] VITALS (105 sets, daily range): BP systolic 52–183; BP diastolic 24–160; PULSE 69–101; RESP 0–44; TEMP 36.28068–37.28076; O2SAT 88–100
[2023-11-26 06:18] LABS: HEMATOCRIT 46.6 % (42.0-52.0); HEMOGLOBIN 15.9 g/dL (14.0-18.0); MEAN CORPUSCULAR HEMOGLOBIN 34.4 pg (28.0-32.0); MEAN CORPUSCULAR HGB CONC 34.2 g/dL (31.0-37.0); MEAN CORPUSCULAR VOLUME 100.7 fL (80.0-94.0); PLATELET 94 x1000/uL (130-400); RED BLOOD CELL COUNT 4.63 mill/uL (4.7-6.1); RED CELL DISTRIBUTION WIDTH 17.3 % (11.6-14.6); WHITE BLOOD COUNT 10.7 x1000/uL (4.5-11.0)
[2023-11-26 06:28] LABS: CARBON DIOXIDE 21 mEq/L (21-32); CHLORIDE 93 mEq/L (98-107); POTASSIUM 5.1 mEq/L (3.5-5.1); SODIUM 127 mEq/L (136-145)
[2023-11-26 06:29] LABS: CALCIUM 8.8 mg/dL (8.7-10.4)
[2023-11-26 06:34] LABS: GLUCOSE 189 mg/dL (70-105)
[2023-11-26 06:35] LABS: UREA NITROGEN BLOOD 59 mg/dL (9-23)
[2023-11-26 06:37] LABS: PHOSPHORUS 2.6 mg/dL (2.5-4.9)
[2023-11-26 07:20] LABS: CREATININE 7.6 mg/dL (0.6-1.3)
[2023-11-26] MEDS ORDERED: DEXTROSE 50% WATER 50ML SYRINGE IV PRN (08:00)
[2023-11-26] MEDS ORDERED: GUAIFENESIN 200MG/10ML SUGAR FREE UDC PO PRN (08:00)
[2023-11-26] MEDS: INSULIN LISPRO 100 UNITS/ML SUBCUT SCH (08:20)
[2023-11-26] MEDS: ONDANSETRON HCL 4MG/2ML INJ IV PRN (08:43)
[2023-11-26] MEDS: BLOOD SUGAR DIAGNOSTIC STRIP TEST SCH (12:54)
[2023-11-26] MEDS: SODIUM CHLORIDE 0.9% 500 ML IV ONE (15:10)
[2023-11-27] VITALS (95 sets, daily range): BP systolic 43–161; BP diastolic 13–133; PULSE 63–106; RESP 0–43; TEMP 36.55848–37.33632; O2SAT 92–98
[2023-11-27 10:24] LABS: HEMATOCRIT 41.8 % (42.0-52.0); HEMOGLOBIN 13.9 g/dL (14.0-18.0); MEAN CORPUSCULAR HEMOGLOBIN 33.4 pg (28.0-32.0); MEAN CORPUSCULAR HGB CONC 33.2 g/dL (31.0-37.0); MEAN CORPUSCULAR VOLUME 100.7 fL (80.0-94.0); PLATELET 123 x1000/uL (130-400); RED BLOOD CELL COUNT 4.15 mill/uL (4.7-6.1); RED CELL DISTRIBUTION WIDTH 17.3 % (11.6-14.6); WHITE BLOOD COUNT 10.4 x1000/uL (4.5-11.0)
[2023-11-27 10:39] LABS: CALCIUM 8.6 mg/dL (8.7-10.4); POTASSIUM 4.4 mEq/L (3.5-5.1)
[2023-11-27 10:51] LABS: CREATININE 6.8 mg/dL (0.6-1.3)
[2023-11-27 12:25] LABS: AMMONIA < 17 uMol/L (<32)
[2023-11-27] MEDS: CEFAZOLIN 1000MG PREMIX 50 ML IV SCH (20:35)
[2023-11-28] VITALS (119 sets, daily range): BP systolic 45–186; BP diastolic 14–130; PULSE 62–152; RESP 11–47; TEMP 36.78072–37.11408; O2SAT 90–99
[2023-11-28 05:42] LABS: POTASSIUM 4.7 mEq/L (3.5-5.1)
[2023-11-28 05:44] LABS: CALCIUM 8.6 mg/dL (8.7-10.4)
[2023-11-28 05:57] LABS: BASOPHILS % 0.5 % (0.0-2.0); DIFFERENTIAL COMMENT 0; EOSINOPHILS % 2.4 % (0.0-5.0); HEMATOCRIT. 39.6 % (42.0-52.0); HEMOGLOBIN. 13.6 g/dL (14.0-18.0); LYMPHOCYTES % 14.1 % (20.0-50.0); MEAN CORPUSCULAR HEMOGLOBIN 34.4 pg (28.0-32.0); MEAN CORPUSCULAR HGB CONC 34.5 g/dL (31.0-37.0); MEAN CORPUSCULAR VOLUME 99.8 fL (80.0-94.0); MEAN PLATELET VOLUME 9.8 fl (7.4-10.4); MONOCYTES % 10.2 % (2.0-8.0); NEUTROPHILS % 72.8 % (40.0-76.0); PLATELET 175 x1000/uL (130-400); RED BLOOD CELL COUNT 3.97 mill/uL (4.7-6.1); RED CELL DISTRIBUTION WIDTH 17.3 % (11.6-14.6); WHITE BLOOD COUNT 9.5 x1000/uL (4.5-11.0)
[2023-11-28 06:16] LABS: CREATININE 7.5 mg/dL (0.6-1.3)
[2023-11-28] MEDS: VANCOMYCIN 500MG/100ML IV NR (18:11)
[2023-11-29] VITALS (41 sets, daily range): BP systolic 50–104; BP diastolic 13–91; PULSE 60–82; RESP 13–46; TEMP 36.114–36.9474; O2SAT 88–98
[2023-11-29] MEDS: ENOXAPARIN 40MG/0.4ML SYR SUBCUT SCH (09:09)
[2023-11-29 09:22] LABS: BASOPHILS % 0.6 % (0.0-2.0); DIFFERENTIAL COMMENT 0; EOSINOPHILS % 2.4 % (0.0-5.0); HEMATOCRIT. 36.6 % (42.0-52.0); HEMOGLOBIN. 12.4 g/dL (14.0-18.0); LYMPHOCYTES % 16.4 % (20.0-50.0); MEAN CORPUSCULAR HEMOGLOBIN 34.2 pg (28.0-32.0); MEAN CORPUSCULAR HGB CONC 33.9 g/dL (31.0-37.0); MEAN CORPUSCULAR VOLUME 100.9 fL (80.0-94.0); MEAN PLATELET VOLUME 9.6 fl (7.4-10.4); MONOCYTES % 9.2 % (2.0-8.0); NEUTROPHILS % 71.4 % (40.0-76.0); PLATELET 225 x1000/uL (130-400); RED BLOOD CELL COUNT 3.63 mill/uL (4.7-6.1); RED CELL DISTRIBUTION WIDTH 17.4 % (11.6-14.6); WHITE BLOOD COUNT 9.4 x1000/uL (4.5-11.0)
[2023-11-29 09:39] LABS: POTASSIUM 4.4 mEq/L (3.5-5.1)
[2023-11-29 09:40] LABS: CALCIUM 8.9 mg/dL (8.7-10.4)
[2023-11-29 09:51] LABS: CREATININE 6.2 mg/dL (0.6-1.3)
[2023-11-29] MEDS: LOPERAMIDE HCL 2MG CAPSULE PO PRN (11:26)
[2023-11-30] VITALS (17 sets, daily range): BP systolic 87–125; BP diastolic 18–87; PULSE 61–76; RESP 16–34; TEMP 36.22512–37.05852; O2SAT 87–98
[2023-11-30 07:58] LABS: POTASSIUM 4.6 mEq/L (3.5-5.1)
[2023-11-30 08:00] LABS: CALCIUM 8.9 mg/dL (8.7-10.4)
[2023-11-30 08:19] LABS: BASOPHILS % 0.7 % (0.0-2.0); DIFFERENTIAL COMMENT 0; EOSINOPHILS % 2.7 % (0.0-5.0); HEMOGLOBIN. 12.2 g/dL (14.0-18.0); LYMPHOCYTES % 13.6 % (20.0-50.0); MEAN CORPUSCULAR HEMOGLOBIN 32.7 pg (28.0-32.0); MEAN CORPUSCULAR HGB CONC 32.2 g/dL (31.0-37.0); MEAN CORPUSCULAR VOLUME 101.5 fL (80.0-94.0); MEAN PLATELET VOLUME 9.7 fl (7.4-10.4); MONOCYTES % 6.8 % (2.0-8.0); NEUTROPHILS % 76.2 % (40.0-76.0); PLATELET 311 x1000/uL (130-400); RED BLOOD CELL COUNT 3.74 mill/uL (4.7-6.1); RED CELL DISTRIBUTION WIDTH 17.7 % (11.6-14.6); WHITE BLOOD COUNT 11.1 x1000/uL (4.5-11.0)
[2023-11-30 08:30] LABS: CREATININE 7.2 mg/dL (0.6-1.3)
[2023-11-30] MEDS ORDERED: VANCOMYCIN 500MG PREMIX 100 ML IV SCH (21:00)
== END 2023-11-30 20:19 | DRG 720 ==
LOC: ER 10:33 → CVICU 14:04 → EDBEDREQ 14:09 → EDBEDREQTM 14:09 → 5EST 11-29 12:57
PROVIDERS: ADMIT Internal Medicine; ATTEND Internal Medicine
PROC: 02HV33Z Insertion of Infusion Device into Superior Vena Cava, Percutaneous Approach (ICD-10-PCS; 2023-11-24)
PROC: B548ZZA Ultrasonography of Superior Vena Cava, Guidance (ICD-10-PCS; 2023-11-24)
PROC: 5A1D70Z Performance of Urinary Filtration, Intermittent, Less than 6 Hours Per Day (ICD-10-PCS; principal; 2023-11-26)
PROC: 5A1D70Z Performance of Urinary Filtration, Intermittent, Less than 6 Hours Per Day (ICD-10-PCS; 2023-11-28)
PROC: 0JBQ0ZZ Excision of Right Foot Subcutaneous Tissue and Fascia, Open Approach (ICD-10-PCS; 2023-11-28)
PROC: 5A1D70Z Performance of Urinary Filtration, Intermittent, Less than 6 Hours Per Day (ICD-10-PCS; 2023-11-30)
DX: A41.02 Sepsis due to Methicillin resistant Staphylococcus aureus (principal); J96.21 Acute and chronic respiratory failure with hypoxia; R65.21 Severe sepsis with septic shock; G93.41 Metabolic encephalopathy; D69.6 Thrombocytopenia, unspecified; E11.649 Type 2 diabetes mellitus with hypoglycemia without coma; I13.11 Hypertensive heart and chronic kidney disease without heart failure, with stage 5 chronic kidney disease, or end stage renal disease; D63.8 Anemia in other chronic diseases classified elsewhere; E11.319 Type 2 diabetes mellitus with unspecified diabetic retinopathy without macular edema; E87.20 Acidosis, unspecified; N18.6 End stage renal disease; E83.39 Other disorders of phosphorus metabolism; E87.1 Hypo-osmolality and hyponatremia; L89.619 Pressure ulcer of right heel, unspecified stage; D53.9 Nutritional anemia, unspecified; E87.70 Fluid overload, unspecified; E83.42 Hypomagnesemia; E11.22 Type 2 diabetes mellitus with diabetic chronic kidney disease; K74.60 Unspecified cirrhosis of liver; E78.5 Hyperlipidemia, unspecified; D72.825 Bandemia; L97.529 Non-pressure chronic ulcer of other part of left foot with unspecified severity; E11.69 Type 2 diabetes mellitus with other specified complication; M86.8X7 Other osteomyelitis, ankle and foot; L97.514 Non-pressure chronic ulcer of other part of right foot with necrosis of bone; L03.115 Cellulitis of right lower limb; J18.9 Pneumonia, unspecified organism; E11.42 Type 2 diabetes mellitus with diabetic polyneuropathy; E11.51 Type 2 diabetes mellitus with diabetic peripheral angiopathy without gangrene; H54.62 Unqualified visual loss, left eye, normal vision right eye; Z88.8 Allergy status to other drugs, medicaments and biological substances; Z86.73 Personal history of transient ischemic attack (TIA), and cerebral infarction without residual deficits; Z91.018 Allergy to other foods; Z89.512 Acquired absence of left leg below knee; Z99.3 Dependence on wheelchair
CPT/HCPCS: 36415; 36573; 36600; 71045; 73630; 80048; 80053; 80076; 80202; 80320; 82140; 82375; 82550; 82607; 82728; 82746; 82805; 82962; 83036; 83540; 83550; 83605; 83735; 83880; 83930; 84100; 84145; 84484; 85025; 85027; 85379; 85651; 86706; 86850; 86900; 87070; 87075; 87077; 87186; 87340; 88304; 90935; 93005; 93922; 93970; 97166; 99291; A6261; C1725; J0690; J1650; J1815; J2405; J2543; J3370; J3475; J3490; J7030; J7050; G0480

== ENCOUNTER 2024-08-11 12:23 | Emergency (ER) | payer MEDICAID ==
[~2024-08-11] VITALS: Ht 167.6 cm; Wt 65.0 kg
[~2024-08-11 12:23] MED LIST changes: +APIX2.5T MT; +ASPI-1406 PO; +ATOR40TA70 PO; -CALC3.8S ONENSTRL; -CLON0.1T PO; -DICL100G58 TP; +FAMO20TA8 PO; -FOLI0.8T53 MT; +GABA-1180 PO; -HYDR-3735 PO; -HYDR-4001 PO; +HYDR-4009 PO; -LIDO700A30 TOP; +LOSA50TA41 PO; +METH-773 PO; -MYL30 PO; -REN800 PO; +SEVE800T25 PO; +ZINC1CAP2 PO; -ZINC220C6 PO
[2024-08-11 12:37] VITALS: O2SAT 97
[2024-08-11] MEDS: TRANEXAMIC ACID 1,000MG/10ML IV ONE (14:17)
[2024-08-11] MEDS: TRANEXAMIC ACID 1,000MG/10ML IV NR (14:22)
[2024-08-11 14:37] LABS: DIFFERENTIAL COMMENT 0; EOSINOPHILS % 8.7 % (0.0-5.0); HEMATOCRIT. 45.5 % (42.0-52.0); HEMOGLOBIN. 14.5 g/dL (14.0-18.0); LYMPHOCYTES % 22.8 % (20.0-50.0); MEAN CORPUSCULAR HEMOGLOBIN 32.1 pg (28.0-32.0); MEAN CORPUSCULAR HGB CONC 31.9 g/dL (31.0-37.0); MEAN CORPUSCULAR VOLUME 100.8 fL (80.0-94.0); MEAN PLATELET VOLUME 10.1 fl (7.4-10.4); MONOCYTES % 11.5 % (2.0-8.0); PLATELET 160 x1000/uL (130-400); RED BLOOD CELL COUNT 4.52 mill/uL (4.7-6.1); RED CELL DISTRIBUTION WIDTH 17.8 % (11.6-14.6); WHITE BLOOD COUNT 5.2 x1000/uL (4.5-11.0)
[2024-08-11 14:49] LABS: POTASSIUM 3.7 mEq/L (3.5-5.1)
[2024-08-11 14:51] LABS: CALCIUM 10.2 mg/dL (8.7-10.4); INR 1.2; PROTHROMBIN TIME 12.7 sec (9.6-11.0)
[2024-08-11 14:58] LABS: CREATININE 4.2 mg/dL (0.6-1.3)
[2024-08-11 16:04] LABS: PHOSPHORUS 2.9 mg/dL (2.5-4.9)
[2024-08-11 20:12] VITALS: BP 124/51; PULSE 75; RESP 22; TEMP 37.1; O2SAT 100
== END 2024-08-11 20:42 | disposition home or self-care (01) ==
LOC: ER 12:23
DX: E11.621 Type 2 diabetes mellitus with foot ulcer (principal); E11.22 Type 2 diabetes mellitus with diabetic chronic kidney disease; E78.5 Hyperlipidemia, unspecified; I12.0 Hypertensive chronic kidney disease with stage 5 chronic kidney disease or end stage renal disease; I48.91 Unspecified atrial fibrillation; N18.6 End stage renal disease; R79.1 Abnormal coagulation profile; Z79.01 Long term (current) use of anticoagulants; Z79.82 Long term (current) use of aspirin; Z79.899 Other long term (current) drug therapy; Z88.8 Allergy status to other drugs, medicaments and biological substances; Z89.512 Acquired absence of left leg below knee; Z99.2 Dependence on renal dialysis
CPT/HCPCS: 80048; 84100; 85025; 85610; 36415; 96374; 99285; Z7610 ×2; A4606

== ENCOUNTER 2025-01-19 12:48 | Inpatient (IN) | payer MEDICAID ==
[~2025-01-19] VITALS: Ht 177.8 cm; Wt 79.4 kg
[~2025-01-19 12:48] MED LIST changes: +EPOE200014 IJ; +HYDR-4009 MT
[2025-01-19 12:59] VITALS: O2SAT 100
[2025-01-19] MEDS ORDERED: HYDROCODONE/ACETAMINOPHEN 5/325MG TABLET PO ONE (13:45)
[2025-01-19 15:11] LABS: BASOPHILS % 0.9 % (0.0-2.0); EOSINOPHILS % 6.9 % (0.0-5.0); HEMATOCRIT. 38.8 % (42.0-52.0); HEMOGLOBIN. 12.6 g/dL (14.0-18.0); LYMPHOCYTES % 12.1 % (20.0-50.0); MEAN PLATELET VOLUME 8.5 fl (7.4-10.4); MONOCYTES % 11.6 % (2.0-8.0); NEUTROPHILS % 68.5 % (40.0-76.0); PLATELET 240 x1000/uL (130-400); RED BLOOD CELL COUNT 4.15 mill/uL (4.7-6.1); RED CELL DISTRIBUTION WIDTH 21.1 % (11.6-14.6)
[2025-01-19 15:22] LABS: UREA NITROGEN BLOOD 27 mg/dL (9-23)
[2025-01-19 15:24] LABS: ASPARTATE AMINOTRANSFERASE 24 IU/L (<34); BILIRUBIN TOTAL 0.4 mg/dL (0.1-1.0); PHOSPHORUS 4.3 mg/dL (2.5-4.9); PROTEIN TOTAL 7.7 g/dL (6.0-8.3)
[2025-01-19 15:31] LABS: CREATININE 3.8 mg/dL (0.6-1.3)
[2025-01-19] MEDS: HYDROCODONE/ACETAMINOPHEN 5/325MG TABLET PO NR (17:22)
[2025-01-19 19:43] VITALS: BP 117/61; PULSE 68; RESP 20; TEMP 36.5848
[2025-01-19 20:00] VITALS: BP 117/61; PULSE 68; RESP 18; TEMP 36.6; O2SAT 99
[2025-01-19] MEDS ORDERED: GUAIFENESIN 200MG/10ML SUGAR FREE UDC PO PRN (20:15)
[2025-01-19] MEDS ORDERED: CLONIDINE 0.1MG TABLET PO PRN (20:15)
[2025-01-19] MEDS ORDERED: ACETAMINOPHEN 325MG TABLET PO PRN ×2 (20:15)
[2025-01-19] MEDS ORDERED: LORAZEPAM 0.5MG TABLET PO PRN (20:15)
[2025-01-19] MEDS ORDERED: ONDANSETRON HCL 4MG/2ML INJ IV PRN (20:15)
[2025-01-19] MEDS ORDERED: DEXTROSE 50% WATER 50ML SYRINGE IV PRN (20:15)
[2025-01-19] MEDS ORDERED: IPRATROPIUM/ALBUTEROL 0.5-3(2.5)MG/3ML NEB HHN PRN (20:15)
[2025-01-19] MEDS ORDERED: NALOXONE HCL 0.4MG/ML VIAL IV PRN (20:30)
[2025-01-19] MEDS: BLOOD SUGAR DIAGNOSTIC STRIP TEST SCH (21:00)
[2025-01-19] MEDS: INSULIN LISPRO 100 UNITS/ML SUBCUT SCH (21:00)
[2025-01-19] MEDS: APIXABAN 2.5 MG TABLET PO SCH (21:00)
[2025-01-19] MEDS: GABAPENTIN 300MG CAPSULE PO SCH (22:35)
[2025-01-19] MEDS: SEVELAMER CARBONATE 800 MG TABLET PO SCH (22:35)
[2025-01-19] MEDS: ASPIRIN 81MG TABLET PO SCH (22:35)
[2025-01-19] MEDS: ATORVASTATIN CALCIUM 20MG TABLET PO SCH (22:35)
[2025-01-19] MEDS: CARVEDILOL 3.125 MG TABLET PO SCH (22:36)
[2025-01-19] MEDS: CEFTRIAXONE 1GM/50ML 50 ML IV SCH (22:49)
[2025-01-19] MEDS: VANCOMYCIN 1.5GM PMX (XELLIA) 300 ML IV NR (23:22)
[2025-01-20] VITALS (10 sets, daily range): BP systolic 92–117; BP diastolic 50–74; PULSE 61–85; RESP 16–21; TEMP 36.1–37.2; O2SAT 89–100
[2025-01-20 01:13] LABS: INR 1.5
[2025-01-20 01:19] LABS: UREA NITROGEN BLOOD 25.0 mg/dL (9-23)
[2025-01-20 01:23] LABS: FOLIC ACID (FOLATE) SERUM > 20.00 ng/mL (>5.38)
[2025-01-20 01:26] LABS: CREATININE 3.2 mg/dL (0.6-1.3)
[2025-01-20 01:45] LABS: TROPONIN I HIGH SENSITIVITY < 4 ng/L (3.0-53)
[2025-01-20 01:56] LABS: VITAMIN B12 SERUM 947 pg/mL (211-911)
[2025-01-20 02:44] LABS: BASOPHILS % 1.1 % (0.0-2.0); EOSINOPHILS % 7.6 % (0.0-5.0); HEMATOCRIT. 37.8 % (42.0-52.0); HEMOGLOBIN. 12.0 g/dL (14.0-18.0); LYMPHOCYTES % 14.8 % (20.0-50.0); MEAN PLATELET VOLUME 8.5 fl (7.4-10.4); MONOCYTES % 12.3 % (2.0-8.0); NEUTROPHILS % 64.2 % (40.0-76.0); PLATELET 227 x1000/uL (130-400); RED BLOOD CELL COUNT 3.99 mill/uL (4.7-6.1); RED CELL DISTRIBUTION WIDTH 21.5 % (11.6-14.6)
[2025-01-20 02:58] LABS: LDL CHOLESTEROL 23.0 mg/dL (5-100); TRIGLYCERIDE 76.0 mg/dL (0-150)
[2025-01-20 03:02] LABS: T4 FREE 0.88 ng/dL (0.89-1.76)
[2025-01-20] MEDS: FERROUS SULFATE 325MG TABLET PO SCH (07:49)
[2025-01-20] MEDS: THIAMINE HCL 100MG TABLET PO SCH (08:40)
[2025-01-20] MEDS: ZINC SULFATE 220 MG ( 50 ) CAPSULE PO SCH (08:41)
[2025-01-20] MEDS: LOSARTAN 50 MG TABLET PO SCH (08:41)
[2025-01-20] MEDS: AMLODIPINE 10MG TABLET PO SCH (08:41)
[2025-01-20 11:56] LABS: ASPARTATE AMINOTRANSFERASE 23 IU/L (<34); BILIRUBIN DIRECT 0.2 mg/dL (<=3.0); BILIRUBIN TOTAL 0.3 mg/dL (0.1-1.0); PROTEIN TOTAL 6.8 g/dL (6.0-8.3)
[2025-01-20 12:32] LABS: HEPATITIS A AB IGM NEGATIVE (Negative)
[2025-01-20 12:33] LABS: HEPATITIS B CORE AB IGM NEGATIVE (Negative); HEPATITIS C AB NON REACTIVE (Neg) (Negative)
[2025-01-20] MEDS: HYDROCODONE/ACETAMINOPHEN 10/325MG TABLET PO PRN (17:46)
[2025-01-20] MEDS: CEFTRIAXONE 1GM/50ML 50 ML IV SCH (20:51)
[2025-01-21] VITALS (10 sets, daily range): BP systolic 93–126; BP diastolic 51–89; PULSE 59–77; RESP 13–22; TEMP 36.4–36.8; O2SAT 97–99
[2025-01-21 07:34] LABS: BASOPHILS % 0.9 % (0.0-2.0); EOSINOPHILS % 7.4 % (0.0-5.0); HEMATOCRIT. 38.1 % (42.0-52.0); HEMOGLOBIN. 12.1 g/dL (14.0-18.0); LYMPHOCYTES % 17.5 % (20.0-50.0); MEAN PLATELET VOLUME 8.8 fl (7.4-10.4); MONOCYTES % 13.1 % (2.0-8.0); NEUTROPHILS % 61.1 % (40.0-76.0); PLATELET 275 x1000/uL (130-400); RED BLOOD CELL COUNT 4.04 mill/uL (4.7-6.1); RED CELL DISTRIBUTION WIDTH 21.2 % (11.6-14.6)
[2025-01-21 07:44] LABS: UREA NITROGEN BLOOD 42.0 mg/dL (9-23)
[2025-01-21 07:55] LABS: CREATININE 5.4 mg/dL (0.6-1.3)
[2025-01-21] MEDS ORDERED: INSULIN REGULAR (HUMULIN R) UD 100 UNITS/ML SYR IV STA (08:08)
[2025-01-21] MEDS: DEXTROSE 50% WATER 50ML SYRINGE IV SCH (08:42)
[2025-01-21] MEDS: SODIUM BICARBONATE 8.4% 50MEQ/50ML SYR IV SCH (08:42)
[2025-01-21] MEDS: INSULIN REGULAR (HUMULIN R) 1000UNITS/10ML VIAL IV SCH (08:43)
[2025-01-21] MEDS ORDERED: AMOX1TAB16 MT (12:32)
[2025-01-21] MEDS ORDERED: SULF1TAB48 MT (12:32)
[2025-01-21 14:51] LABS: CREATININE 4.2 mg/dL (0.6-1.3); UREA NITROGEN BLOOD 30.0 mg/dL (9-23)
[2025-01-21] MEDS ORDERED: VANCOMYCIN 500 MG in DEXT 5% WATER 100 ML IV SCH (21:00)
== END 2025-01-21 15:30 | DRG 383 ==
LOC: ER 12:48 → EDBEDREQTM 18:39 → EDBEDREQ 18:39 → ENRESERV 18:48 → 3WST 19:48
PROVIDERS: ADMIT Internal Medicine; ATTEND Internal Medicine
PROC: 5A1D70Z Performance of Urinary Filtration, Intermittent, Less than 6 Hours Per Day (ICD-10-PCS; principal; 2025-01-21)
DX: L03.113 Cellulitis of right upper limb (principal); I13.2 Hypertensive heart and chronic kidney disease with heart failure and with stage 5 chronic kidney disease, or end stage renal disease; N18.6 End stage renal disease; I50.9 Heart failure, unspecified; N17.9 Acute kidney failure, unspecified; E11.22 Type 2 diabetes mellitus with diabetic chronic kidney disease; I48.91 Unspecified atrial fibrillation; E11.51 Type 2 diabetes mellitus with diabetic peripheral angiopathy without gangrene; K74.60 Unspecified cirrhosis of liver; Z74.01 Bed confinement status; Z82.49 Family history of ischemic heart disease and other diseases of the circulatory system; Z99.2 Dependence on renal dialysis; Z88.8 Allergy status to other drugs, medicaments and biological substances; Z89.512 Acquired absence of left leg below knee; Z79.899 Other long term (current) drug therapy; Z91.018 Allergy to other foods; Z86.73 Personal history of transient ischemic attack (TIA), and cerebral infarction without residual deficits
CPT/HCPCS: 36415; 71045; 73110; 73120; 74018; 80048; 80053; 80061; 80076; 80202; 82140; 82270; 82550; 82607; 82746; 82962; 83605; 83735; 83880; 84100; 84145; 84439; 84443; 84481; 84484; 85025; 86705; 86709; 87340; 90935; 93005; 93922; 93970; 93971; 97166; 99285; J0696; J1815; J3373; J3490; J7060